=== PATIENT | female | born 1935 | race Caucasian/White ===

== ENCOUNTER 2022-04-21 05:20 | Emergency (ER) | payer BC ==
[~2022-04-21] VITALS: Ht 154.9 cm; Wt 62.6 kg
[~2022-04-21 05:20] MED LIST: ALBU90I INH; ALBU90OI61; ALPR.25 PO; ALPR.5; ALPR.5 PO; ASPI81EC; ATOR10; ATOR10 PO; ATOR20; ATOR20 PO; CALCIUM; CELE100 PO; CELE200; CELE200 PO; DILT120; ESOM20 PO; FISH OIL CONCENTRATE; FISH1000 PO; FLUSAL1005 IH; FLUSAL2505; FLUSAL2505 IH; FLUSAL5005; FURO20; FURO20 PO; HYDACE5; IPRA.03NI; LEVFLO500 PO; LEVSOD100 PO; LEVSOD25 PO; LEVSOD75; LEVSOD75 PO; LISI10; LOSA25 PO; LOSA50 PO; METO25ER; METO50ER PO; MULVITMINF; NEXIUM 40 MG; NITRSPRAY; OXYB5 PO; OXYB5ER; POTASSIUM CHLORIDE 10 MEQ; SERT25 PO; SERT50; WARF1 PO; WARF5 PO; WARF7.5 PO
[2022-04-21 05:38] LABS: BASOPHILS ABSOLUTE AUTO 0.02 K/mm3 (0.00-0.23); BASOPHILS PERCENT AUTO 0 % (0-2); EOSINOPHILS ABSOLUTE AUTO 0.14 K/mm3 (0.00-0.68); EOSINOPHILS PERCENT AUTO 3 % (0-6); Hematocrit 22.7 % (33.0-51.0); Hemoglobin 6.9 g/dL (11.5-16.0); IMMATURE GRAN ABSOLUTE AUTO 0.02 K/mm3 (0.00-0.10); IMMATURE GRAN PERCENT AUTO 0 % (0-1); LYMPHOCYTES ABSOLUTE AUTO 0.94 K/mm3 (0.84-5.20); LYMPHOCYTES PERCENT AUTO 20 % (21-46); MONOCYTES ABSOLUTE AUTO 0.49 K/mm3 (0.16-1.47); MONOCYTES PERCENT AUTO 10 % (4-13); Mean Corpuscular HGB 32.5 pg (26.0-34.0); Mean Corpuscular HGB Conc 30.4 g/dL (31.5-36.5); Mean Corpuscular Volume 107 fL (80-100); Mean Platelet Volume 9.7 fL (9.1-12.4); NEUTROPHILS PERCENT AUTO 66 % (41-73); Platelet Count 177 K/mm3 (150-400); RDW Coefficient Variation 16.5 % (11.7-14.2); RDW Standard Deviation 63.8 fL (35.1-46.3); Red Blood Cell Count 2.12 M/mm3 (3.80-5.20); White Blood Cell Count 4.71 K/mm3 (4.00-11.30)
[2022-04-21 05:59] LABS: Albumin, Blood 3.1 g/dL (3.4-5.0); Bilirubin, Total 0.5 mg/dL (0.1-1.0); Bun/Creatinine Ratio 20.6 (12.0-20.0); Calcium, Blood 8.5 mg/dL (8.5-10.1); Creatinine, Blood 1.36 mg/dL (0.40-1.00); Globulin, Blood 3.1 g/dL (2.2-4.0); Potassium, Blood 4.1 mmol/L (3.5-5.5); Total Protein, Blood 6.2 g/dL (6.4-8.2)
[2022-04-21 07:48] LABS: Percent Saturation 5.4 % (15.0-50.0)
[2022-04-21 08:44] LABS: Influenza A, PCR NEGATIVE (NEGATIVE); Influenza B, PCR NEGATIVE (NEGATIVE); Resp Syncytial Virus, PCR NEGATIVE (NEGATIVE); SARS-Cov-2 (COVID-19) PCR, MMC NEGATIVE (NEGATIVE)
== END 2022-04-21 11:06 | disposition home or self-care (01) ==
LOC: ER 05:20
PROVIDERS: Physician Assistant; Student in an Organized Health Care Education/Training Program
DX: I11.0 Hypertensive heart disease with heart failure (principal); I50.9 Heart failure, unspecified; D50.9 Iron deficiency anemia, unspecified; I25.10 Atherosclerotic heart disease of native coronary artery without angina pectoris; J44.9 Chronic obstructive pulmonary disease, unspecified; E78.5 Hyperlipidemia, unspecified; E03.9 Hypothyroidism, unspecified; Z88.0 Allergy status to penicillin; Z88.5 Allergy status to narcotic agent; Z88.8 Allergy status to other drugs, medicaments and biological substances; Z88.7 Allergy status to serum and vaccine; Z79.890 Hormone replacement therapy; Z79.899 Other long term (current) drug therapy; Z20.822 Contact with and (suspected) exposure to COVID-19
CPT/HCPCS: 0241U; 71045; 80053; 82728; 83540; 83550; 83880; 84484; 85025; 86850; 86900; 86901; 86923; 93005; 93010; J1940; J7030; P9016